=== PATIENT | female | born 1990 | race Caucasian/White ===

== ENCOUNTER 2017-12-29 17:42 | Emergency (ER) | payer OTHER ==
--- NOTE | 2017-12-29 18:11 | ER ---
Nurse's Notes [facility] Name: Mayela Oshea Age: 27 yrs Sex: Female : 1990 Arrival Date: 12/29/2017 Time: 17:43 Bed 9 Private MD: Marisel Greenberg Diagnosis: Strain of muscle, fascia and tendon of lower back;Strain of muscle and tendon of back wall of thorax Presentation: 12/29 17:54 Presenting complaint: Patient states: back started hurting after lifting a labor bed dm5 out while at work. Lower part of bed was stuck and it was difficult to remove. Transition of care: patient was not received from another setting of care. Onset of symptoms was December 29, 2017. Risk Assessment: Do you want to hurt yourself or someone else? Patient reports no desire to harm self or others. Initial Sepsis Screen: Does the patient meet any 2 criteria? No. Patient's initial sepsis screen is negative. Does the patient have a suspected source of infection? No. Patient's initial sepsis screen is negative. Care prior to arrival: None. 17:54 Method Of Arrival: Ambulatory dm5 17:54 Acuity: KEVIN 4 dm5 Triage Assessment: 17:55 General: Appears in no apparent distress. Behavior is calm, cooperative. Pain: dm5 Complains of pain in low back area and mid back area. Neuro: Level of Consciousness is awake, alert, obeys commands, Oriented to person, place, time. Respiratory: Airway is patent Respiratory effort is even, unlabored, relaxed, Respiratory pattern is regular, symmetrical, Breath sounds are clear. GI: No signs and/or symptoms were reported involving the gastrointestinal system. : No signs and/or symptoms were reported regarding the genitourinary system. Derm: Skin is pink, warm \T\ dry. Musculoskeletal: Circulation, motion, and sensation intact. 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 4 in. (162.56 cm); Pain 2/10; 17:58 Body Mass Index 30.04 (79.38 kg, 162.56 cm) dm5 ED Course: 17:43 Patient arrived in ED. as 17:43 Marisel Greenberg MD is Private Physician. as 17:48 Archie Begum NP is PHCP. pm1 17:48 Tin Ramirez MD is Attending Physician. pm1 17:55 Triage completed. dm5 17:55 Arm band placed on right wrist. Patient placed in an exam room. dm5 17:58 Janessa Trevizo RN is Primary Nurse. dm5 18:10 Marisel Greenberg MD is Referral Physician. pm1 Administered Medications: No medications were administered Outcome: 18:10 Discharge ordered by . pm1 18:27 Patient left the ED. dm5 Signatures: Janessa Trevizo, MITCHELL RN dm5 Guadalupe Sellers Patrick, NP MACHINE PECAN PICKER pm1
--- NOTE | 2017-12-29 18:11 | EDPHYS ---
Physician Documentation [facility] Name: Mayela Oshea Age: 27 yrs Sex: Female : 1990 Arrival Date: 12/29/2017 Time: 17:43 Bed 9 Private MD: Marisel Greenberg ED Physician Tni Ramirez HPI: 12/29 18:09 This 27 yrs old Female presents to ER via Ambulatory with complaints of Back pm1 Pain. 18:09 The patient presents with pain that is acute. The symptoms are located in the right mid pm1 back and right low back. Onset: The symptoms/episode began/occurred just prior to arrival, today. The pain does not radiate. Associated signs and symptoms: Pertinent negatives: chest pain, dysuria, fever, numbness, tingling, SOB. The problem was sustained when lifting heavy object, bottom half of delivery bed on L\T\D floor. Modifying factors: The patient symptoms are alleviated by remaining still, the patient symptoms are aggravated by movement. Severity of symptoms: in the emergency department the symptoms are unchanged. The patient has not experienced similar symptoms in the past. Patient was taking off and lifting the bottom half of a labor and delivery bed. It was hard to remove and she hurt her back while lifting it. 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 dm5 Historical: - Allergies: 17:59 No Known Allergies; dm5 - Home Meds: 17:59 Synthroid 125 mcg Oral tab 1 tab once daily [Active]; dm5 - PMHx: 17:59 Hypothyroidism; dm5 - PSHx: 17:59 rhinoplasty; dm5 ROS: 18:09 Constitutional: Negative for fever, chills, and weight loss, Eyes: Negative for injury, pm1 pain, redness, and discharge, ENT: Negative for injury, pain, and discharge, Neck: Negative for injury, pain, and swelling, Cardiovascular: Negative for chest pain, palpitations, and edema, Respiratory: Negative for shortness of breath, cough, wheezing, and pleuritic chest pain, Abdomen/GI: Negative for abdominal pain, nausea, vomiting, diarrhea, and constipation. 18:09 MS/Extremity: Negative for injury and deformity, Skin: Negative for injury, rash, and discoloration, Neuro: Negative for headache, weakness, numbness, tingling, and seizure. 18:09 Back: Positive for of the right mid back and right low back, pain. Exam: 18:09 Constitutional: This is a well developed, well nourished patient who is awake, alert, pm1 and in no acute distress. Head/Face: Normocephalic, atraumatic. Neck: Trachea midline, no thyromegaly or masses palpated, and no cervical lymphadenopathy. Supple, full range of motion without nuchal rigidity, or vertebral point tenderness. No Meningismus. Chest/axilla: Normal chest wall appearance and motion. Nontender with no deformity. No lesions are appreciated. Cardiovascular: Regular rate and rhythm with a normal S1 and S2. No gallops, murmurs, or rubs. Normal PMI, no JVD. No pulse deficits. Respiratory: Lungs have equal breath sounds bilaterally, clear to auscultation and percussion. No rales, rhonchi or wheezes noted. No increased work of breathing, no retractions or nasal flaring. Abdomen/GI: Soft, non-tender, with normal bowel sounds. No distension or tympany. No guarding or rebound. No evidence of tenderness throughout. 18:09 Skin: Warm, dry with normal turgor. Normal color with no rashes, no lesions, and no evidence of cellulitis. MS/ Extremity: Pulses equal, no cyanosis. Neurovascular intact. Full, normal range of motion. 18:09 Back: pain, that is mild, of the right mid back and right low back, normal spinal alignment noted, no vertebral tenderness present. 18:09 Neuro: Orientation: is normal, Motor: moves all fours, Gait: is steady, at a normal pace, without difficulty. Vital Signs: 17:58 BP 145 / 85; Pulse 76; Resp 18; Temp 98.1; Pulse Ox 99% on R/A; Weight 79.38 kg; Height dm5 5 ft. 4 in. (162.56 cm); Pain 2/10; 17:58 Body Mass Index 30.04 (79.38 kg, 162.56 cm) dm5 MDM: 17:49 Patient medically screened. [facility] 18:09 Data reviewed: vital signs. Data interpreted: Pulse oximetry: on room air is 99 %. pm1 Interpretation: normal. Counseling: I had a detailed discussion with the patient and/or guardian regarding: the historical points, exam findings, and any diagnostic results supporting the discharge/admit diagnosis, the need for outpatient follow up, to return to the emergency department if symptoms worsen or persist or if there are any questions or concerns that arise at home. Administered Medications: No medications were administered Disposition: 12/30 07:00 Co-signature as Attending Physician, Tin Ramirez MD I agree with the assessment and chip plan of care. Chart complete. Disposition: 12/29/17 18:10 Discharged to Home. Impression: Strain of muscle, fascia and tendon of lower back, Strain of muscle and tendon of back wall of thorax. - Condition is Stable. - Discharge Instructions: Back Pain, Adult, Muscle Strain, Back Injury Prevention, [id number]. - Prescriptions for Naprosyn 500 mg Oral Tablet - take 1 tablet by ORAL route 2 times per day take with food; 30 tablet. Cyclobenzaprine 10 mg Oral Tablet - take 1 tablet by ORAL route every 8 hours As needed; 30 tablet. - Medication Reconciliation Form, Thank You Letter, Antibiotic Education form. - Follow up: Emergency Department; When: As needed; Reason: Worsening of condition. Follow up: Marisel Greenberg MD; When: As needed; Reason: Recheck today's complaints, Continuance of care, Re-evaluation by your physician. - Problem is new. - Symptoms have improved. Signatures: Janessa Trevizo RN RN dmTin Booker MD MD cha Marinas, Patrick, YARD LABORER YARD LABORER pm1 Corrections: (The following items were deleted from the chart) 12/29 18:27 18:10 12/29/2017 18:10 Discharged to Home. Impression: Strain of muscle, fascia and dm5 tendon of lower back; Strain of muscle and tendon of back wall of thorax. Condition is Stable. Forms are Medication Reconciliation Form, Thank You Letter, Antibiotic Education, Prescription Opioid Use. Follow up: Emergency Department; When: As needed; Reason: Worsening of condition. Follow up: Marisel Greenberg; When: As needed; Reason: Recheck today's complaints, Continuance of care, Re-evaluation by your physician. Problem is new. Symptoms have improved. pm1
[2017-12-29 18:31] VITALS: BP 145/85; TEMP 98.1; O2SAT 99
== END 2017-12-29 18:27 | disposition home or self-care (01) ==
LOC: ER 17:42
DX: S29.012A Strain of muscle and tendon of back wall of thorax, initial encounter (principal); S39.012A Strain of muscle, fascia and tendon of lower back, initial encounter; E03.9 Hypothyroidism, unspecified; X50.0XXA Overexertion from strenuous movement or load, initial encounter; Y93.89 Activity, other specified; Y92.9 Unspecified place or not applicable; Y99.9 Unspecified external cause status
CPT/HCPCS: 99281